=== PATIENT | female | born 2000 | race African-American/Black ===

== ENCOUNTER 2022-09-30 18:59 | Emergency (ER) | payer OTHER ==
[2022-09-30 19:13] VITALS: BP 154/102; PULSE 107; RESP 18; TEMP 98.6; BMI 45.4
[2022-09-30 20:52] LABS: EOS % 1.9 % (0-4.5); HEMATOCRIT 42.7 % (32.4-45.2); HEMOGLOBIN 13.7 GM/dL (10.7-15.3); LYMPH % 34.2 % (8-40); MCH 27.7 pg (25.7-33.7); MCHC 32.2 g/dl (32.0-36.0); MEAN CELL VOLUME 86.1 fl (80-96); MEAN PLT VOLUME 11.1 fl (7.5-11.1); MONO % 6.1 % (3.8-10.2); NEUT % 56.8 % (42.8-82.8); PLATELET COUNT 276 10^3/uL (134-434); RBC 4.96 M/mm3 (3.60-5.2); RDW 14.7 % (11.6-15.6); WHITE BLOOD COUNT 8.2 K/mm3 (4.0-10.0)
[2022-09-30 21:06] LABS: POTASSIUM 4.5 mmol/L (3.5-5.1)
[2022-09-30 21:08] LABS: ALBUMIN 3.9 g/dl (3.4-5.0); CALCIUM 9.2 mg/dL (8.5-10.1)
[2022-09-30 21:12] LABS: CREATININE 0.9 mg/dL (0.55-1.3)
[2022-09-30 21:13] LABS: BILIRUBIN,TOTAL 0.2 mg/dL (0.2-1); TOT PROT 7.8 g/dl (6.4-8.2)
== END 2022-09-30 23:20 | disposition home or self-care (01) ==
LOC: JERFT 18:59
DX: R07.9 Chest pain, unspecified (principal); R20.2 Paresthesia of skin; R10.84 Generalized abdominal pain; K59.00 Constipation, unspecified
CPT/HCPCS: 36415; 80053; 84484; 84703; 85025; 93005; 93010; 99283-25